=== PATIENT | female | born 2000 | race Caucasian/White ===

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

== ENCOUNTER 2018-04-25 15:29 | Emergency (ER) | payer SELFPAY ==
[2018-04-25 15:33] VITALS: BP 108/70; PULSE 70; TEMP 97.3
[2018-04-25 16:03] LABS: URINE APPEARANCE SLCLOUDY; URINE BILIRUBIN NEGATIVE (<2.0 mg/dL); URINE COLOR LTYELLOW; URINE GLUCOSE (UA) NEGATIVE (NEGATIVE); URINE KETONE NEGATIVE (NEGATIVE); URINE LEUK ESTERASE 2+ (NEGATIVE); URINE NITRITE NEGATIVE (NEGATIVE); URINE PROTEIN NEGATIVE (NEGATIVE); URINE UROBILINOGEN NEGATIVE mg/dL (0.2-1.0)
[2018-04-25 16:05] LABS: HCG,QUALITATIVE URINE Negative
[2018-04-25 16:10] LABS: EPI CELLS FEW /HPF (FEW); URINE MUCUS RARE
--- NOTE | 2018-04-25 16:25 | PDOC ---
History of Present Illness - General Chief Complaint: Urinary Problem Stated Complaint: UTI Time Seen by Provider: 04/25/18 15:38 History Source: Patient Exam Limitations: Clinical Condition - History of Present Illness Initial Comments: 04/25/18 16:21 Patient with no past medical history present with complaint of 4 hour history of urinary frequency, dysuria and burning with urination. Patient denies back pain, abdominal pain, nausea or vomiting. Denies fever. Patient is sexually active and one partner. Timing/Duration: 4-6 hours Past History - Past Medical History Allergies/Adverse Reactions: Allergies Allergy/AdvReac Type Severity Reaction Status Date / Time Penicillins Allergy Severe Rash Verified 04/25/18 15:33 Home Medications: Ambulatory Orders Phenazopyridine HCl [Pyridium] 100 - 200 mg PO TID PRN #20 tablet 12/27/16 Sulfamethoxazole/Trimethoprim [Bactrim DS -] 1 tab PO BID 5 Days #10 tablet 12/04 COPD: No - Immunization History Immunization Up to Date: Yes - Suicide/Smoking/Psychosocial Hx Smoking History: Never smoked Hx Alcohol Use: No Drug/Substance Use Hx: No Substance Use Type: Alcohol, Marijuana Review of Systems - Review of Systems Able to Perform ROS?: Yes Is the patient limited Hebrew proficient: No Constitutional: No: Chills, Fever, Malaise Respiratory: No: Symptoms reported Cardiac (ROS): No: Symptoms Reported ABD/GI: No: Symptoms Reported, Nausea, Vomiting : Yes: See HPI, Burning, Dysuria, Frequency, Urgency. No: Discharge, Flank Pain, Hematuria, Incontinence, Pain Musculoskeletal: No: Back Pain All Other Systems: Reviewed and Negative *Physical Exam - Vital Signs Last Vital Signs Temp Pulse Resp BP Pulse Ox 97.3 F L 70 18 108/70 99 04/25/18 15:30 04/25/18 15:30 04/25/18 15:30 04/25/18 15:30 04/25/18 15:30 - Physical Exam General Appearance: Yes: Nourished, Appropriately Dressed. No: Apparent Distress HEENT: positive: Normal ENT Inspection Neck: positive: Supple Respiratory/Chest: negative: Respiratory Distress, Accessory Muscle Use Cardiovascular: positive: Regular Rhythm, Regular Rate Gastrointestinal/Abdominal: positive: Flat, Soft. negative: Tender, Organomegaly Musculoskeletal: negative: CVA Tenderness Extremity: positive: Normal Inspection Neurologic: positive: Fully Oriented, Alert Moderate Sedation - Procedure Monitoring Vital Signs: Procedure Monitoring Vital Signs Temperature 97.3 F L 04/25/18 15:30 Pulse Rate 70 04/25/18 15:30 Respiratory Rate 18 04/25/18 15:30 Blood Pressure 108/70 04/25/18 15:30 O2 Sat by Pulse Oximetry (%) 99 04/25/18 15:30 ED Treatment Course - ADDITIONAL ORDERS Additional order review: Laboratory Results 04/25/18 15:45 Urine Color Ltyellow Urine Appearance Slcloudy Urine pH 6.0 Ur Specific [place] 1.018 Urine Protein Negative Urine Glucose (UA) Negative Urine Ketones Negative Urine Blood 2+ H Urine Nitrite Negative Urine Bilirubin Negative Urine Urobilinogen Negative Ur Leukocyte Esterase 2+ H Urine WBC (Auto) 197 Urine RBC (Auto) 53 Ur Epithelial Cells Few Urine Mucus Rare Urine HCG, Qual Negative Medical Decision Making - Medical Decision Making 04/25/18 16:22 Patient with no past medical history present with complaint of 4 history of urinary symptoms of dysuria, frequency and burning with urination. Symptoms likely UTI versus STI. Urinalysis, urine culture and urine tests ordered. Urine gonorrhea, and chlamydia tests ordered. Treat based on test results. 04/25/18 16:25 Urinalysis shows positive leukocytes and positive with WBCs. Patient is stable for discharge on Bactrim pending the urine culture results. *DC/Admit/Observation/Transfer Diagnosis at time of Disposition: Dysuria - Discharge Dispostion Disposition: HOME Condition at time of disposition: Stable Decision to Admit order: No - Prescriptions Prescriptions: Sulfamethoxazole/Trimethoprim [Bactrim DS -] 1 tab PO BID 5 Days #10 tablet - Referrals - Patient Instructions Printed Discharge Instructions: DI for Urinary Tract Infection (UTI) Additional Instructions: Take medications as prescribed. Increase fluid intake. Avoid frequently. Follow- up with primary care. - Post Discharge Activity
== END 2018-04-25 16:29 | disposition home or self-care (01) ==
LOC: JERFT 15:29
DX: N39.0 Urinary tract infection, site not specified (principal)
CPT/HCPCS: 36415; 81003; 81015; 84703; 87086; 87491; 87591; 99281-25